=== PATIENT | male | born 1985 | race Caucasian/White ===

== ENCOUNTER 2019-09-03 14:12 | Emergency (ER) | payer OTHER ==
[~2019-09-03] VITALS: Ht 182.9 cm; Wt 124.3 kg
[2019-09-03] MEDS ORDERED: RITALIN10 MG PO (14:33)
[2019-09-03] MEDS ORDERED: PROZAC40 MG PO (14:34)
[2019-09-03 16:04] LABS: ABSOLUTE BASOPHILS 0.1 thou/uL (0.0-0.2); ABSOLUTE LYMPHOCYTES 2.1 thou/uL (0.8-5.3); ABSOLUTE MONOCYTES 1.4 thou/uL (0.0-1.2); ABSOLUTE NEUTROPHILS 13.6 thou/uL (1.6-8.1); BASOPHILS 0.6 %; EOSINOPHILS 0.1 %; HEMATOCRIT 39.9 % (42.0-52.0); HEMOGLOBIN 13.8 gm/dL (14.0-18.0); LYMPHOCYTES 12.4 %; MCH 29.4 pg (26.0-34.0); MCHC 34.6 g/dL (28.0-37.0); MPV 9.9 fl. (7.2-11.1); NUCLEATED RBCS 0 /100WBC; PLATELET COUNT* 181 thou/uL (150-400); POLYS 78.9 %; RBC 4.69 mil/uL (4.50-6.00); RDW-CV 13.4 % (10.5-14.5); WBC 17.3 thou/uL (4.0-11.0)
[2019-09-03 16:12] LABS: CALCIUM 8.7 mg/dL (8.5-10.1); POTASSIUM 3.5 mmol/L (3.5-5.1)
[2019-09-03 16:22] LABS: ALBUMIN 3.9 g/dL (3.4-5.0); TOTAL BILIRUBIN 0.9 mg/dL (<0.1-1.0); TOTAL PROTEIN 7.8 g/dL (6.4-8.2)
[2019-09-03] MEDS ORDERED: DOXYCYCLINE 10100 MG PO (17:00)
[2019-09-03 18:34] VITALS: BP 133/78
[2019-09-03] MEDS ORDERED: ZOFRAN ODT4 MG PO (18:42)
== END 2019-09-03 18:34 | disposition home or self-care (01) ==
LOC: M.ERS 14:12
PROVIDERS: Personal Emergency Response Attendant
DX: L02.416 Cutaneous abscess of left lower limb (principal); L03.112 Cellulitis of left axilla; L03.111 Cellulitis of right axilla; Z88.2 Allergy status to sulfonamides; Z90.89 Acquired absence of other organs

== ENCOUNTER 2019-09-04 15:17 | Inpatient (IN) | payer OTHER ==
[~2019-09-04] VITALS: Ht 182.9 cm; Wt 124.3 kg
[~2019-09-04 15:17] MED LIST: DOXYCYCLINE 10100 MG PO; PROZAC40 MG PO; RITALIN10 MG PO; ZOFRAN ODT4 MG PO
[2019-09-04 16:25] LABS: ABSOLUTE BASOPHILS 0.2 thou/uL (0.0-0.2); ABSOLUTE EOSINOPHILS 0.1 thou/uL (0.0-0.7); ABSOLUTE LYMPHOCYTES 2.1 thou/uL (0.8-5.3); ABSOLUTE MONOCYTES 1.1 thou/uL (0.0-1.2); ABSOLUTE NEUTROPHILS 12.3 thou/uL (1.6-8.1); BASOPHILS 1.2 %; EOSINOPHILS 0.7 %; HEMATOCRIT 41.5 % (42.0-52.0); HEMOGLOBIN 14.1 gm/dL (14.0-18.0); LYMPHOCYTES 13.2 %; MCHC 33.9 g/dL (28.0-37.0); MCV 85.6 fL (80.0-100.0); MONOCYTES 6.9 %; MPV 10.7 fl. (7.2-11.1); NUCLEATED RBCS 0 /100WBC; PLATELET COUNT* 207 thou/uL (150-400); RBC 4.85 mil/uL (4.50-6.00); RDW-CV 13.8 % (10.5-14.5); WBC 15.8 thou/uL (4.0-11.0)
[2019-09-04 16:29] LABS: CALCIUM 8.9 mg/dL (8.5-10.1); POTASSIUM 3.9 mmol/L (3.5-5.1)
[2019-09-04 16:33] LABS: ALBUMIN 3.5 g/dL (3.4-5.0); TOTAL BILIRUBIN 0.7 mg/dL (<0.1-1.0); TOTAL PROTEIN 7.6 g/dL (6.4-8.2)
[2019-09-04 20:30] VITALS: BP 133/67
[2019-09-04 20:50] VITALS: BP 116/51
[2019-09-05 06:10] LABS: HEMATOCRIT 39.3 % (42.0-52.0); HEMOGLOBIN 13.2 gm/dL (14.0-18.0); MCHC 33.5 g/dL (28.0-37.0); MCV 86.7 fL (80.0-100.0); MPV 10.1 fl. (7.2-11.1); RBC 4.53 mil/uL (4.50-6.00); RDW-CV 13.7 % (10.5-14.5); WBC 10.8 thou/uL (4.0-11.0)
[2019-09-05 06:23] LABS: MAGNESIUM 2.1 mg/dL (1.8-2.4); POTASSIUM 4.4 mmol/L (3.5-5.1)
[2019-09-05 16:00] VITALS: BP 122/64
[2019-09-05 22:15] VITALS: BP 132/59
[2019-09-06 08:10] VITALS: BP 131/53
[2019-09-06 10:09] LABS: HEMATOCRIT 37.2 % (42.0-52.0); HEMOGLOBIN 12.6 gm/dL (14.0-18.0); MCV 85.2 fL (80.0-100.0); MPV 10.8 fl. (7.2-11.1); RBC 4.37 mil/uL (4.50-6.00); RDW-CV 13.7 % (10.5-14.5); WBC 14.9 thou/uL (4.0-11.0)
[2019-09-06 10:17] LABS: ALBUMIN 2.8 g/dL (3.4-5.0); CALCIUM 8.4 mg/dL (8.5-10.1); CREATININE 0.8 mg/dL (0.6-1.3); POTASSIUM 4.7 mmol/L (3.5-5.1); TOTAL BILIRUBIN 0.2 mg/dL (<0.1-1.0); TOTAL PROTEIN 6.6 g/dL (6.4-8.2)
[2019-09-06 15:47] LABS: URINE BILIRUBIN NEGATIVE (Negative); URINE BLOOD NEGATIVE (Negative); URINE CLARITY CLEAR; URINE COLOR YELLOW; URINE GLUCOSE-RANDOM NEGATIVE (Negative); URINE KETONES NEGATIVE (Negative); URINE LEUKOCYTES-REFLEX NEGATIVE (Negative); URINE NITRITE-REFLEX NEGATIVE (Negative); URINE PROTEIN NEGATIVE (Negative); URINE SPECIFIC GRAVITY 1.025 (1.005-1.030); URINE UROBILINOGEN 0.2 E.U./dl (0.2-1.0)
[2019-09-06 15:53] LABS: AMP/METHAMP Negative (Negative); BARBITURATES Negative (Negative); BENZODIAZEPINES Negative (Negative); COCAINE Negative (Negative); METHADONE Negative (Negative); OPIATES POSITIVE (Negative); PCP Negative (Negative); THC Negative (Negative)
[2019-09-06 20:00] VITALS: BP 143/49
[2019-09-07 08:05] VITALS: BP 136/63
[2019-09-07 09:45] LABS: HEMATOCRIT 36.4 % (42.0-52.0); HEMOGLOBIN 12.3 gm/dL (14.0-18.0); MCH 28.9 pg (26.0-34.0); MCHC 33.9 g/dL (28.0-37.0); MCV 85.3 fL (80.0-100.0); MPV 10.1 fl. (7.2-11.1); RBC 4.26 mil/uL (4.50-6.00); RDW-CV 13.5 % (10.5-14.5); WBC 13.2 thou/uL (4.0-11.0)
[2019-09-07 10:09] LABS: CALCIUM 8.3 mg/dL (8.5-10.1); CREATININE 0.9 mg/dL (0.6-1.3); POTASSIUM 3.9 mmol/L (3.5-5.1)
[2019-09-07 11:29] VITALS: BP 131/94
[2019-09-07 15:56] VITALS: BP 129/55
[2019-09-07 20:00] VITALS: BP 137/71
[2019-09-08 06:41] LABS: HEMATOCRIT 38.7 % (42.0-52.0); HEMOGLOBIN 12.9 gm/dL (14.0-18.0); MCH 28.5 pg (26.0-34.0); MCHC 33.5 g/dL (28.0-37.0); MCV 85.1 fL (80.0-100.0); MPV 10.2 fl. (7.2-11.1); RBC 4.54 mil/uL (4.50-6.00); RDW-CV 13.8 % (10.5-14.5)
[2019-09-08 06:58] LABS: ALBUMIN 2.6 g/dL (3.4-5.0); CALCIUM 7.9 mg/dL (8.5-10.1); MAGNESIUM 1.9 mg/dL (1.8-2.4); POTASSIUM 4.2 mmol/L (3.5-5.1); TOTAL BILIRUBIN 0.1 mg/dL (<0.1-1.0); TOTAL PROTEIN 5.8 g/dL (6.4-8.2)
[2019-09-08 08:21] VITALS: BP 130/61
[2019-09-08 19:35] VITALS: BP 120/71
[2019-09-09] VITALS (7 sets, daily range): BP systolic 115–156; BP diastolic 65–92
[2019-09-09 07:06] LABS: HEMATOCRIT 40.6 % (42.0-52.0); MCH 29.3 pg (26.0-34.0); MCHC 34.6 g/dL (28.0-37.0); MCV 84.8 fL (80.0-100.0); MPV 9.3 fl. (7.2-11.1); NUCLEATED RBCS 0 /100WBC; PLATELET COUNT* 234 thou/uL (150-400); RBC 4.79 mil/uL (4.50-6.00); WBC 10.5 thou/uL (4.0-11.0)
[2019-09-09 07:26] LABS: CALCIUM 7.9 mg/dL (8.5-10.1); MAGNESIUM 1.9 mg/dL (1.8-2.4); POTASSIUM 4.4 mmol/L (3.5-5.1)
[2019-09-09 07:50] LABS: ABSOLUTE EOSINOPHILS 0.3 thou/uL (0.0-0.7); ABSOLUTE LYMPHOCYTES 5.3 thou/uL (0.8-5.3); ABSOLUTE MONOCYTES 0.7 thou/uL (0.0-1.2); ABSOLUTE NEUTROPHILS 4.2 thou/uL (1.6-8.1); METAMYELOCYTES 2 %
[2019-09-09 07:51] LABS: ANISOCYTOSIS 1+; PLATELET ESTIMATE ADEQUATE
[2019-09-09 07:52] LABS: MICROCYTES 1+
[2019-09-10 07:29] VITALS: BP 133/75
[2019-09-10] MEDS ORDERED: CLINDAMYCIN HC300 MG PO (11:07)
[2019-09-10] MEDS ORDERED: MUPIROCIN22 GM TOP (11:07)
[2019-09-10] MEDS ORDERED: HOME MEDICATION PO (11:07)
[2019-09-10 11:20] VITALS: BP 156/92
[2019-09-10 14:09] VITALS: BP 156/92
== END 2019-09-10 14:09 | disposition home or self-care (01) | DRG 603 ==
LOC: M.ERS 15:17 → M.ORTHSURG 16:17 → M.TBA-ER 16:17 → M.ORTHSURG 21:08
PROVIDERS: Physician Assistant; Surgery; ADMIT Internal Medicine; ATTEND Internal Medicine
DX: L03.116 Cellulitis of left lower limb (principal); R65.10 Systemic inflammatory response syndrome (SIRS) of non-infectious origin without acute organ dysfunction; E44.0 Moderate protein-calorie malnutrition; F41.9 Anxiety disorder, unspecified; Z88.2 Allergy status to sulfonamides; Z20.828 Contact with and (suspected) exposure to other viral communicable diseases; B96.89 Other specified bacterial agents as the cause of diseases classified elsewhere; B95.62 Methicillin resistant Staphylococcus aureus infection as the cause of diseases classified elsewhere; Z90.49 Acquired absence of other specified parts of digestive tract; Z79.899 Other long term (current) drug therapy; Z88.1 Allergy status to other antibiotic agents